=== PATIENT | female | born 1990 | race African-American/Black ===

== ENCOUNTER 2020-03-31 14:51 | Emergency (ER) | payer MEDICAID, OTHER ==
[~2020-03-31] VITALS: Ht 172.7 cm; Wt 66.0 kg
[2020-03-31] MEDS ORDERED: MORPHINE SULFATE 4 MG/ML CPJ (NOT FOR IM USE) IV STA (15:05)
[2020-03-31] MEDS ORDERED: ONDANSETRON HCL 4MG/2ML INJ IV STA (15:05)
[2020-03-31] MEDS ORDERED: SODIUM CHLORIDE 0.9% 500 ML IV ONE (15:15)
[2020-03-31 15:34] LABS: BASOPHILS % 0.5 % (0.0-2.0); EOSINOPHILS % 0.6 % (0.0-5.0); HEMATOCRIT. 37.2 % (36.0-48.0); HEMOGLOBIN. 12.2 g/dL (12.0-16.0); LYMPHOCYTES % 33.2 % (20.0-50.0); MEAN CORPUSCULAR HEMOGLOBIN 33.6 pg (28.0-32.0); MEAN CORPUSCULAR VOLUME 102.1 fL (81.0-99.0); MONOCYTES % 4.6 % (2.0-8.0); NEUTROPHILS % 61.1 % (40.0-76.0); PLATELET 266 x1000/uL (130-400); RED BLOOD CELL COUNT 3.65 mill/uL (4.2-5.4); RED CELL DISTRIBUTION WIDTH 16.2 % (11.6-14.6)
[2020-03-31 15:38] LABS: CHLORIDE 111 mEq/L (98-107)
[2020-03-31 15:50] LABS: HCG SCREEN NEGATIVE
[2020-03-31] MEDS ORDERED: MORPHINE SULFATE 4 MG/ML CPJ (NOT FOR IM USE) IV ONE (16:00)
[2020-03-31] MEDS ORDERED: HYDROMORPHONE HCL/PF 2MG/ML CPJ IV ONE (16:45)
[2020-03-31] MEDS ORDERED: PROPOFOL 200MG/20ML VIAL IV ONE (18:15)
[2020-03-31] MEDS ORDERED: KETAMINE HCL 50 MG/ML 10ML IV ONE (18:15)
[2020-04-01 03:31] VITALS: BP 124/80
== END 2020-04-01 03:49 | disposition home or self-care (01) ==
LOC: ER 15:01
DX: S82.51XA Displaced fracture of medial malleolus of right tibia, initial encounter for closed fracture (principal); S52.501A Unspecified fracture of the lower end of right radius, initial encounter for closed fracture; S52.001A Unspecified fracture of upper end of right ulna, initial encounter for closed fracture; Z90.49 Acquired absence of other specified parts of digestive tract; V49.88XA Car occupant (driver) (passenger) injured in other specified transport accidents, initial encounter; Y93.89 Activity, other specified; Y92.89 Other specified places as the place of occurrence of the external cause; Y99.8 Other external cause status
CPT/HCPCS: 25605; 27840; 36415; 71045; 72170; 73080; 73090; 73100; 73110; 73600; 73610; 80053; 83690; 84484; 84703; 85025; 93005; 96374; 96375; 96376; 99152; 99291; J1170; J2270; J2405; J2704; J3490; J7040; 99285